=== PATIENT | male | born 1995 | race Caucasian/White ===

== ENCOUNTER 2018-12-09 23:18 | Emergency (ER) | payer BC, OTHER ==
--- NOTE | 2018-12-09 23:53 | EDM.PDOC ---
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 Onset: Sudden Duration: Hour(s):, Constant Location: Reports: Back Quality: Reports: Ache, Throbbing Severity: Moderate Improves with: Reports: Rest Worsens with: Reports: Movement Context: Reports: Lifting Associated Symptoms: Reports: No Other Symptoms Right Lower Back Pain Score (Numeric/FACES): 7 - Related Data Allergies Allergy/AdvReac Type Severity Reaction Status Date / Time No Known Allergies Allergy Verified 12/09/18 23:19 Home Meds: Home Meds Cyclobenzaprine [Flexeril] 10 mg PO TID 10 Days #30 tab 12/10/18 [Rx] Diclofenac Sodium [Voltaren] 75 mg PO BIDMEALS 30 Days #60 tab.cr 12/10/18 [Rx] Past Medical History - Past Health History Medical/Surgical History: Denies Medical/Surgical History Social & Family History - Tobacco Use Smoking Status *Q: Current Every Day Smoker Years of Tobacco use: 5 Packs/Tins Daily: 0.5 - Recreational Drug Use Recreational Drug Use: No ED ROS GENERAL - Review of Systems Review Of Systems: See Below Constitutional: Reports: No Symptoms HEENT: Reports: No Symptoms Respiratory: Reports: No Symptoms Cardiovascular: Reports: No Symptoms Endocrine: Reports: No Symptoms GI/Abdominal: Reports: No Symptoms : Reports: No Symptoms Musculoskeletal: Reports: No Symptoms Skin: Reports: No Symptoms Neurological: Reports: No Symptoms Psychiatric: Reports: No Symptoms Hematologic/Lymphatic: Reports: No Symptoms Immunologic: Reports: No Symptoms ED EXAM,LOWER BACK PAIN/INJURY - Physical Exam Exam: See Below Exam Limited By: No Limitations General Appearance: Alert, WD/WN, No Apparent Distress Ears: Normal External Exam, Normal Canal, Hearing Grossly Normal, Normal TMs Nose: Normal Inspection Throat/Mouth: Normal Inspection, Normal Lips, Normal Teeth, Normal Gums, Normal Oropharynx, Normal Voice, No Airway Compromise Head: Atraumatic, Normocephalic Neck: Normal Inspection, Supple, Non-Tender, Full Range of Motion Respiratory/Chest: No Respiratory Distress, Lungs Clear, Normal Breath Sounds, No Accessory Muscle Use, Chest Non-Tender Cardiovascular: Normal Peripheral Pulses, Regular Rate, Rhythm, No Edema, No Gallop, No JVD, No Murmur, No Rub GI/Abdominal: Normal Bowel Sounds, Soft, Non-Tender, No Organomegaly, No Distention, No Abnormal Bruit, No Mass Back Exam: Normal Inspection, Decreased Range of Motion, Vertebral Tenderness Extremities: Limited Range of Motion, Other (Positive straight leg on the right at 45 positive straight leg and 60 pain is worse on the right than on the left ) Neurological: Alert, Normal Mood/Affect, Normal Dorsiflexion, CN II-XII Intact, Normal Plantar Flexion, Normal Gait, Normal Reflexes, No Motor/Sensory Deficits , Oriented x 3, Straight Leg Raise (L), Straight Leg Raise (R) Psychiatric: Normal Affect, Normal Mood Skin Exam: Warm, Dry, Intact, Normal Color, No Rash Lymphatic: No Adenopathy Course - Vital Signs Last Recorded V/S: Last Vital Signs Temp 98.6 F 12/09/18 23:25 Pulse 71 12/09/18 23:25 Resp 16 12/09/18 23:25 BP 102/62 12/09/18 23:25 Pulse Ox 100 12/09/18 23:25 - Orders/Labs/Meds Orders: Active Orders 24 hr Category Date Time Status Lumbar Spine Min 4V [CR] Stat Exams 12/09/18 23:46 Taken Departure - Departure Time of Disposition: 01:15 Disposition: Home, Self-Care 01 Clinical Impression: Back pain Qualifiers: Back pain location: low back pain Chronicity: acute Back pain laterality: midline Sciatica presence: without sciatica Qualified Code(s): M54.5 - Low back pain - Discharge Information *PRESCRIPTION DRUG MONITORING PROGRAM REVIEWED*: Not Applicable *COPY OF PRESCRIPTION DRUG MONITORING REPORT IN PATIENT LUISA: Not Applicable Prescriptions: Cyclobenzaprine [Flexeril] 10 mg PO TID 10 Days #30 tab Diclofenac Sodium [Voltaren] 75 mg PO BIDMEALS 30 Days #60 tab.cr Instructions: Cyclobenzaprine tablets, Diclofenac immediate-release tablets Referrals: PCP,None [Primary Care Provider] - Forms: ED Department Discharge Care Plan Goals: X-ray revealed no fractures at this time patient will be sent home he is to follow-up with his primary in about 1 or 2 weeks we started him on Flexeril 10 mg 3 times a day plus diclofenac 75 mg twice a day. - My Orders Last 24 Hours: My Active Orders 12/09/18 23:46 Lumbar Spine Min 4V [CR] Stat - Assessment/Plan Last 24 Hours: My Active Orders 12/09/18 23:46 Lumbar Spine Min 4V [CR] Stat
== END 2018-12-10 01:15 | disposition home or self-care (01) ==
LOC: LL.ED 23:18
DX: M54.5 Low back pain (principal); F17.210 Nicotine dependence, cigarettes, uncomplicated
CPT/HCPCS: 72110; 99283-25